=== PATIENT | female | born 1930 | race Two or more races ===

== ENCOUNTER → 2016-10-15 | Outpatient (CLI) | payer OTHER ==
--- NOTE | 2016-10-15 10:54 | MA ---
Screening Digital Mammogram With iCAD Indication: Routine screening. Technique: Standard cephalocaudal and mediolateral oblique projections are obtained. This examinati on is processed by the iCAD computer-aided detection system. Comparison: August 2015, July 2014, July 2013, and July 2011 Breast density: Type B. Findings: CAD was reviewed. No suspicious microcalcifications, mass, or architectural distortion. Impression: Negative mammogram BI-RADS: 1 - Negative Recommendation: Routine screening is recommended in one year. [facility] will send a result letter to the patient. Negative mammography should not preclude additional workup of a clinically suspicious finding. The patient's information is entered into a reminder system with a target due date for her next mammo gram.
== END ==
LOC: FIMAGING 09:01
DX: Z12.31 Encounter for screening mammogram for malignant neoplasm of breast (principal)
CPT/HCPCS: G0202

== ENCOUNTER → 2017-01-31 | Outpatient (CLI) | payer OTHER | LOC: BHFA 10:00 | PROVIDERS: ATTEND Internal Medicine Cardiovascular Disease | DX: I34.0 Nonrheumatic mitral (valve) insufficiency (principal); I10 Essential (primary) hypertension; I25.10 Atherosclerotic heart disease of native coronary artery without angina pectoris ==

== ENCOUNTER → 2017-08-03 | Outpatient (CLI) | payer OTHER | LOC: FIMAGING 10:48 | PROVIDERS: ATTEND Physician Assistant | DX: S76.312A Strain of muscle, fascia and tendon of the posterior muscle group at thigh level, left thigh, initial encounter (principal); M16.12 Unilateral primary osteoarthritis, left hip; M76.02 Gluteal tendinitis, left hip ==

== ENCOUNTER → 2017-10-24 | Outpatient (CLI) | payer OTHER | LOC: FIMAGING 08:05 | PROVIDERS: ATTEND Family Medicine | DX: Z12.31 Encounter for screening mammogram for malignant neoplasm of breast (principal) ==

== ENCOUNTER 2017-11-02 17:25 | Emergency (ER) | payer OTHER ==
[2017-11-02 17:32] VITALS: BP 214/82; PULSE 92; RESP 18; TEMP 98.1; O2SAT 90
[2017-11-02] MEDS ORDERED: LIDOCAINE 4%/MENTHOL 1% PATCH TD ONE (17:54)
[2017-11-02] MEDS ORDERED: ACETAMINOPHEN 325 MG TAB PO ONE (17:55)
--- NOTE | 2017-11-02 17:55 | EDPHY ---
H & P Time Seen by Provider: 11/02/17 17:39 HPI/ROS: CHIEF COMPLAINT: Bilateral neck pain HISTORY OF PRESENT ILLNESS: Symptoms started this week on Saturday when she bent down to pick pulling machine tender the piece of carrot that was on the floor. She had pain which is worse in her right side of her neck than the left which is gradually increased over the last 4 days. It extends into her shoulders and is worse with turning her head or any movement of her head or neck. Not associated with weakness or numbness in extremities, visual symptoms, headache, fever or chills , dizziness or vertigo or trouble with balance or speech. Symptoms moderate not really that much better with Tylenol or heating pad. No injury or fall. No sore throat. REVIEW OF SYSTEMS: Eye: no change in vision ENT: no sore throat Cardiac: no chest pain or syncope Pulmonary: no cough or SOB Abdomen: no vomiting, diarrhea, abdominal pain Musculoskeletal: HPI Skin: no rash Neuro: no headache Constitutional: no fever : no urinary symptoms A comprehensive 10 point review of systems is otherwise negative aside from elements mentioned in the history of present illness. PAST MEDICAL HISTORY: Includes hypertension, cholesterol, pleurisy, myocardial infarction, appendectomy and cholecystectomy, asthma with home oxygen Mainly at night. Social history: Here with her children. General Appearance: Alert and conversant, cooperative. Eyes: No scleral icterus. Extraocular motion intact and pupils reactive. ENT, Mouth: Normal mucous membranes. No trismus. No stridor or drooling and normal voice. Respiratory: Normal respiratory effort, breath sounds equal, lungs are clear to auscultation. Cardiovascular: Regular rate and rhythm. Gastrointestinal: Abdomen is soft and non tender. Neurological: Alert, face symmetric, normal motor and sensory in extremities. Normal [id number] bilaterally. No pronator drift. Can lift each limb off the bed independently. Speech is fluent. Extraocular motions intact. Good general manager farm strength bilaterally. Skin: Warm and dry, no rashes. No redness or other skin discoloration on the neck. Musculoskeletal: Patient has tenderness greater on the right trapezius than the left. Pushing reproduces her symptoms and really makes her jump. She has a lot of paraspinal neck muscle tenderness but no midline cervical thoracic or lumbar spine tenderness. No neck swelling. Psychiatric: Not agitated. 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 Lidocaine patch and a small amount of oxycodone, cold pack, follow up with her primary care doctor this week. Hypertension noted, likely due to pain. Oxygen saturation noted, likely baseline. Smoking Status: Never smoked Constitutional: Initial Vital Signs Temperature (C) 36.7 C 11/02/17 17:26 Heart Rate 92 11/02/17 17:26 Respiratory Rate 18 11/02/17 17:26 Blood Pressure 214/82 H 11/02/17 17:26 O2 Sat (%) 90 L 11/02/17 17:26 O2 Delivery Mode Room Air Allergies/Adverse Reactions: Sulfa (Sulfonamide Antibiotics) [Sulfa(Sulfonamide Antibiotics)] Allergy ( Unknown, Verified 11/02/17 17:25) Home Medications: Medication Instructions Recorded Home O2 05/21/16 Aspirin EC [Aspirin EC 81 mg (*)] 81 mg PO DAILY 11/02/17 Atorvastatin Calcium [Lipitor 20 20 mg PO DAILY 11/02/17 mg (*)] Ezetimibe [Zetia 10 MG (*)] 10 mg PO 11/02/17 Furosemide [Lasix 20 MG (*)] 20 mg PO 11/02/17 Ipratropium [Atrovent Neb (*)] 0.5 mg IH 11/02/17 Lidocaine [Lidoderm] 1 each TP DAILY #5 adh..patch 11/02/17 amLODIPine BESYLATE [Norvasc 5 mg 5 mg PO DAILY 11/02/17 (*)] oxyCODONE HCL [Oxycodone HCl] 5 mg PO Q6 PRN #11 tablet 11/02/17 MDM/Departure - MDM Medications Given: Discontinued Medications Acetaminophen (Tylenol) 650 mg PO EDNOW ONE Stop: 11/02/17 17:56 Last Admin: 11/02/17 18:04 Dose: 650 mg Miscellaneous Information (Patch Removal) 1 ea TD DAILY21 ALBAN Stop: 05/01/18 20:59 Last Admin: 11/02/17 18:05 Dose: Not Given Miscellaneous Medication (Icy Hot Lidocaine/Menthol 4%/1% Patch) 1 patch TD EDNOW ONE Stop: 11/02/17 17:55 Last Admin: 11/02/17 18:03 Dose: 1 patch - Depart Disposition: Home, Routine, Self-Care Clinical Impression: Neck muscle spasm Condition: Good Instructions: Lidocaine (On the skin), Oxycodone, Rapid Release (By mouth), Spasmodic Torticollis (ED), Muscle Spasm (ED) Additional Instructions: Ice pack for 20 min at a time to sore areas as needed 3-4 times a day. Please return for worsening or severe pain, fever, any trouble with speech or balance or vision or dizziness. Please see your doctor in the next 2-3 days for recheck. you can take Tylenol 650 mg by mouth every 6 hr as needed for pain over the next 3 days. Prescriptions: Lidocaine [Lidoderm] 1 each TP DAILY #5 adh..patch oxyCODONE HCL [Oxycodone HCl] 5 mg PO Q6 PRN #11 tablet PRN Reason: neckpain Referrals: ANAND MORRISSEY [Primary Care Provider] - 2-3 days, call for appt.
[2017-11-02] MEDS ORDERED: PATCH REMOVAL 1 EA PATCH TD SCH (21:00)
== END 2017-11-02 18:07 | disposition home or self-care (01) ==
DX: M62.838 Other muscle spasm (principal); I10 Essential (primary) hypertension; J45.909 Unspecified asthma, uncomplicated; I25.2 Old myocardial infarction; Z79.82 Long term (current) use of aspirin

== ENCOUNTER → 2018-03-05 | Outpatient (CLI) | payer OTHER | DX: I25.10 Atherosclerotic heart disease of native coronary artery without angina pectoris (principal); I77.9 Disorder of arteries and arterioles, unspecified; I10 Essential (primary) hypertension; I34.0 Nonrheumatic mitral (valve) insufficiency; E78.00 Pure hypercholesterolemia, unspecified; Z79.899 Other long term (current) drug therapy ==

== ENCOUNTER → 2019-01-08 | Outpatient (CLI) | payer OTHER | LOC: FIMAGING 11:06 | PROVIDERS: ATTEND Family Medicine | DX: Z12.31 Encounter for screening mammogram for malignant neoplasm of breast (principal) ==

== ENCOUNTER → 2019-02-03 | Outpatient (CLI) | payer OTHER | LOC: BHFA 10:45 | PROVIDERS: ATTEND Internal Medicine Cardiovascular Disease | DX: I25.10 Atherosclerotic heart disease of native coronary artery without angina pectoris (principal) ==

== ENCOUNTER 2019-02-06 16:27 | Inpatient (IN) | payer OTHER ==
--- NOTE | 2019-02-06 16:30 | EDPHY ---
H & P Time Seen by Provider: 02/06/19 16:30 - Personal History Tetanus Vaccine Date: 2009 - Medical/Surgical History Hx Asthma: Yes Hx Chronic Respiratory Disease: Yes Hx Diabetes: No Hx Cardiac Disease: Yes Hx Renal Disease: No Hx Cirrhosis: No Hx Alcoholism: No Hx HIV/AIDS: No Hx Splenectomy or Spleen Trauma: No Other PMH: HTN, high cholesterol, pleurisy, heart murmur, OH, appendectomy, hernan. home O2 3lnc at night, asthma. osteoperosis - Social History Smoking Status: Never smoked Constitutional: Initial Vital Signs Temperature (C) 36.8 C 02/06/19 16:32 Heart Rate 73 02/06/19 16:32 Respiratory Rate 16 02/06/19 16:32 Blood Pressure 175/73 H 02/06/19 16:32 O2 Sat (%) 94 02/06/19 16:32 O2 Delivery Mode [Procedural Non-Rebreather Mask 4th] O2 Delivery Mode [Procedural Non-Rebreather Mask 3rd] O2 Delivery Mode [Procedural Non-Rebreather Mask 2nd] O2 Delivery Mode [Procedural Nasal Cannula,Non-Rebreather Mask 1st] O2 Delivery Mode [.Immediate Nasal Cannula Pre-Procedure] O2 Delivery Mode Nasal Cannula O2 (L/minute) [Procedural 4th] 15 O2 (L/minute) [Procedural 3rd] 15 O2 (L/minute) [Procedural 2nd] 15 O2 (L/minute) [Procedural 1st] 15 O2 (L/minute) [.Immediate Pre- 3 Procedure] O2 (L/minute) 3 Allergies/Adverse Reactions: Sulfa (Sulfonamide Antibiotics) [Sulfa(Sulfonamide Antibiotics)] Allergy ( Unknown, Verified 11/02/17 17:25) Home Medications: Medication Instructions Recorded Home O2 05/21/16 Aspirin EC [Aspirin EC 81 mg (*)] 81 mg PO DAILY 11/02/17 Atorvastatin Calcium [Lipitor 20 20 mg PO DAILY 11/02/17 mg (*)] Ezetimibe [Zetia 10 MG (*)] 10 mg PO 11/02/17 Furosemide [Lasix 20 MG (*)] 20 mg PO 11/02/17 Ipratropium [Atrovent Neb (*)] 0.5 mg IH 11/02/17 Lidocaine [Lidoderm] 1 each TP DAILY #5 adh..patch 11/02/17 amLODIPine BESYLATE [Norvasc 5 mg 5 mg PO DAILY 11/02/17 (*)] oxyCODONE HCL [Oxycodone HCl] 5 mg PO Q6 PRN #11 tablet 11/02/17 Medical Decision Making - Diagnostics Imaging Results: Imaging Impressions Shoulder X-Ray 02/06/19 16:36 Impression: Anterior dislocation at the glenohumeral joint left shoulder. Possible loose body or fracture fragment near the glenoid. Other chronic findings as above. Imaging: I viewed and interpreted images myself ED Course/Re-evaluation: CHIEF COMPLAINT: Left shoulder injury HISTORY OF PRESENT ILLNESS: The patient is an 88 y/o female with a history of hypertension, OH, and asthma arriving via EMS for a left shoulder injury. Per EMS the patient lives independently and tripped over the rug in her kitchen. She fell onto her left side and subsequently developed left shoulder pain. Due to this pain she has been unable to move her arm. She denies loss of consciousness. While en route she received 100mcg IV Fentanyl and 4mg IV Zofran. No fever, headache, body aches, lightheadedness, chest pain, heart palpitations, shortness of breath, cough, abdominal pain, urinary or bowel complaints, numbness, paresthesias. REVIEW OF SYSTEMS: A comprehensive 10 system review of systems is otherwise negative aside from elements mentioned in the history of present illness and medical decision making. PHYSICAL EXAM: HR, BP, O2 Sat, RR. Temp noted General Appearance: Alert, well hydrated, appropriate, and non-toxic appearing. Head: Atraumatic without scalp tenderness or obvious injury Eyes: Pupils equal, round, reactive to light and accommodation, EOMI, no trauma , no injection. Ears: Clear bilaterally, no perforation, normal landmarks Nose: Atraumatic, no rhinorrhea, clear. Throat: There is no erythema or exudates, no lesions, normal tonsils, mucus membranes moist. Neck: Supple, 2+ carotid upstroke, nontender, no lymphadenopathy. Respiratory: No retractions, no distress, no wheezes, and no accessory muscle use. Lungs are clear to auscultation bilaterally. Cardiovascular: Regular rate and rhythm, no murmurs, rubs, or gallops. Bilateral carotid, radial, dorsalis pedis, and posterior tibial pulses intact. Good capillary refill all extremities. Gastrointestinal: Abdomen is soft, nontender, non-distended, no masses, no rebound, no guarding, no peritoneal signs. Musculoskeletal: Deformity to left shoulder with tenderness and limited ROM. Otherwise normal active ROM of all extremities, atraumatic. Neurological: Alert, appropriate, and interactive. The patient has normal DTRs and non-focal cranial nerves, motor, sensory, and cerebellar exam. Skin: No rashes, good turgor, no nodules on palpation. Past medical history: Hypertension, high cholesterol, pleurisy, heart murmur, OH , home O2 3lnc at night, asthma, osteoporosis Past surgical history: Appendectomy, cholecystectomy Family history: Denies Social history: Single, lives independently in [place], retired DIAGNOSTICS/PROCEDURES/CRITICAL CARE TIME: Left shoulder x-ray: Anterior dislocation at the glenohumeral joint left shoulder. Possible loose body or fracture fragment near the glenoid. Procedure: Reduction of dislocated shoulder Time-out completed immediately before the procedure. O2 administered. Placed on pulse oximeter and [id number]. Neurovascular exam intact pre-procedure. Given 10mL 1% Bupivacaine with epinephrine into the glenohumeral joint and then 60mg IV Ketamine. The left shoulder was reduced using traction-countertraction. Reassessed post-procedure. Neurovascular status intact- normal median, radial, ulnar and axillary nerve motor and sensory exam. Exam indicated reduction. Confirmed reduction on X-ray. Arm sling applied. The procedure was performed by myself, Dr. Zaragoza Indication: Left shoulder dislocation reduction The patient is an appropriate candidate to tolerate procedural sedation. The patient's vitals signs and mental status are appropriate. The risks, benefits and alternatives of the sedation were discussed with the patient. The patient is ASA classification 1. The patient's Mallampati airway score was 1 and the patient did meet the 3-3-2 airway measurements. A time out was completed. The patient was sedated with 60mg IV Ketamine. The patient was monitored with continuous pulse oximetry, monitor worker and end tidal CO2. There were no complications and no significant hypoxemia. I performed both the sedation and the procedure. The total time I spent at the bedside during the procedural sedation was 20 minutes. The patient was examined after the procedural sedation and has returned to their pre-sedation baseline with normal vital signs and a normal examination. Post reduction left shoulder x-ray: Reduced left shoulder dislocation. DIFFERENTIAL DIAGNOSIS: The differential diagnosis for the patient's shoulder injury included but was not limited to fracture, ligamentous injury, contusion, muscular strain. MEDICAL DECISION MAKING: The patient is an 88 y/o female with a history of hypertension, OH, and asthma arriving via EMS for a left shoulder injury. After a mechanical fall today the patient injured her left shoulder. While en route she received 100mcg IV Fentanyl and 4mg IV Zofran. On exam there is a deformity to the left shoulder with tenderness and limited ROM. Left shoulder x-ray ordered. 1712: Patient has been moved to Trauma Room 1 for a shoulder reduction. She just received 100mcg IV Fentanyl and an additional 4mg IV Zofran. She is actively vomiting. I will not be able to consciously sedate her. I will locally anesthetize the patient's shoulder to perform the reduction. 1725: I am unable to reduce the patient's fracture. We will need to consciously sedate her with Ketamine, which she is comfortable with. 1736: Reassessed patient to reduce the patient's shoulder dislocation with conscious sedation. Patient received 60mg IV Ketamine as she was not able to relax and her muscles continued to spasm. I was able to successfully reduce the dislocation. Patient will be placed in a sling. 1800: Patient is still vomiting. She will need to be admitted for pain control and further evaluation. 1827: I consulted with the hospitalist service, Dr. Conteh accepts admission of this patient. 1830: Reassessed patient and discussed plan for admission, which she is comfortable with. - Data Points Medications Given: Discontinued Medications Fentanyl (Sublimaze) 100 mcg IVP EDNOW ONE Stop: 02/06/19 17:00 Last Admin: 02/06/19 17:05 Dose: 100 mcg Ketamine HCl 60 mg/ Syringe 1.2 mls @ 72 mls/hr IVP ONCE ONE Stop: 02/06/19 17:26 Last Admin: 02/06/19 18:00 Dose: Not Given Ketamine HCl (Ketamine) 60 mg IV EDNOW ONE Stop: 02/06/19 17:31 Last Admin: 02/06/19 17:30 Dose: 60 mg Ondansetron HCl (Zofran) 4 mg IVP EDNOW ONE Stop: 02/06/19 17:00 Last Admin: 02/06/19 17:05 Dose: 4 mg Ondansetron HCl (Zofran) 4 mg IVP EDNOW ONE Stop: 02/06/19 17:18 Last Admin: 02/06/19 17:20 Dose: 4 mg Departure - Departure Disposition: [facility] Inpatient Acute Clinical Impression: Dislocation of left shoulder joint Qualifiers: Encounter type: initial encounter Qualified Code(s): S43.005A - Unspecified dislocation of left shoulder joint, initial encounter Condition: Fair Referrals: Patient,NotPresent [Unknown] - As per Instructions Report Scribed for: Pauol Zaragoza Report Scribed by: Joan Campa Date of Report: 02/06/19 Time of Report: 16:31
[2019-02-06] MEDS ORDERED: fentaNYL 100 MCG/2 ML INJ IVP ONE (16:59)
[2019-02-06] MEDS ORDERED: ONDANSETRON 4 MG/2 ML VIAL IVP ONE ×2 (16:59→17:17)
[2019-02-06] MEDS ORDERED: ONDANSETRON 4 MG/2 ML VIAL ONE (17:13)
[2019-02-06] MEDS ORDERED: KETAMINE 200 MG/20 ML VIAL ONE (17:25)
[2019-02-06] MEDS ORDERED: KETAMINE IVP ONE (17:25)
[2019-02-06] MEDS ORDERED: KETAMINE 500 MG/10 ML VIAL IV ONE (17:30)
[2019-02-06] MEDS ORDERED: oxyCODONE IR 5 MG TAB PO PRN (19:10)
[2019-02-06] MEDS ORDERED: ONDANSETRON 4 MG/2 ML VIAL IVP PRN (19:10)
[2019-02-06] MEDS ORDERED: ACETAMINOPHEN 325 MG TAB PO PRN (19:10)
[2019-02-06] MEDS ORDERED: ONDANSETRON DISINTEGRATING 4 MG TAB PO PRN (19:10)
[2019-02-06] MEDS ORDERED: HYDROmorphONE/DILAUDID 1 MG/ML INJ IVP PRN (19:21)
--- NOTE | 2019-02-06 19:30 | PDGENHP ---
History and Physical - Chief Complaint fall, shoulder pain - History of Present Illness 88yo F with history of asthma, chronic nocturnal O2 dependence, CAD, HTN presents after a mechanical fall at home. She tripped on a rug while going into her kitchen. She fell on her left shoulder and immediately had pain. She also hit her left knee and lightly bumped her head. She is on aspirin but no anticoagulants. EMS was called. She did vomit in the ambulance which she attributes to the pain she was experiencing. An x-ray showed a anteriorly dislocated left shoulder and loose body near the glenoid. The shoulder was successfully reduced by Dr Zaragoza after receiving 60mg IV ketamine. She was placed in a sling. She again vomited after the reduction and continues to have mild pain. Given that the patient lives alone and is still symptomatic, it was felt unsafe to discharge this elderly woman with limited mobility of her left arm. Case discussed with ED physician Paulo Zaragoza. History Information - Allergies/Home Medication List Allergies/Adverse Reactions: Sulfa (Sulfonamide Antibiotics) [Sulfa(Sulfonamide Antibiotics)] Allergy ( Intermediate, Verified 02/06/19 19:38) Swelling/neck,face,throat Home Medications: Aspirin EC [Aspirin EC 81 mg (*)] 81 mg PO DAILY 02/06/19 [Last Taken 02/06/19] Atorvastatin Calcium [Lipitor 20 mg (*)] 20 mg PO DAILY 02/06/19 [Last Taken ] Carvedilol [Coreg (*)] 25 mg PO BIDMEAL 02/06/19 [Last Taken 02/06/19] Cholecalciferol Vit D3 [Vitamin D3 (*)] 1,000 units PO DAILY 02/06/19 [Last Taken 02/06/19] Ezetimibe [Zetia 10 MG (*)] 10 mg PO DAILY 02/06/19 [Last Taken 02/06/19] Furosemide [Lasix 20 MG (*)] 20 mg PO DAILY@0600 02/06/19 [Last Taken 02/06/19] I have personally reviewed and updated: family history, medical history, social history, surgical history - Past Medical History Additional medical history: CAD, carotid artery disease, HLD, HTN, mitral regurgitation, asthma, chronic nocturnal O2 dependence, diastolic CHF - Surgical History Additional surgical history: appy, hernan, tonsillectomy - Family History Positive for: non-pertinent - Social History Smoking Status: Never smoked Alcohol Use: None Drug Use: None Additional social history: Lives alone in [facility]. Has son who also lives in [place]. Review of Systems Review of Systems: ROS: 10pt was reviewed & negative except for what was stated in HPI & below Physical Exam Physical Exam: Temp Pulse Resp BP Pulse Ox 36.9 C 71 16 144/56 H 98 02/06/19 18:37 02/06/19 18:37 02/06/19 18:37 02/06/19 18:37 02/06/19 18:37 O2 (L/minute) 3 Constitutional: no apparent distress, appears nourished, not in pain Eyes: PERRL, anicteric sclera, EOMI Ears, Nose, Mouth, Throat: moist mucous membranes, hearing normal, ears appear normal, no oral mucosal ulcers Cardiovascular: regular rate and rhythym, no murmur, rub, or gallop, No edema Respiratory: no respiratory distress, no rales or rhonchi, clear to auscultation Gastrointestinal: normoactive bowel sounds, soft, non-tender abdomen, no palpable masses Genitourinary: no bladder fullness, no bladder tenderness Skin: warm, normal color, no rashes or abrasions, no fluctuance, no induration, No mottled Musculoskeletal: other (left arm in sling) Neurologic: AAOx3 Psychiatric: interacting appropriately Lab Data & Imaging Review Interpretation: Left shoulder x-ray: see HPI Assessment & Plan Assessment: 88yo F with history of asthma, chronic nocturnal O2 dependence, CAD, HTN presents after a mechanical fall at home found to have dislocated shoulder. Plan: 1. Acute anterior dislocation of left shoulder: s/p reduction in ED. - Sling, pain control 2. Mechanical fall: No significant headstrike or LOC. Non-focal neurologic exam. On aspirin but no anticoagulants. - No indication for head CT currently\ - PT/OT 3. Nausea: Suspect related to pain from #1. - Anti-emetics PRN 4. CAD: No anginal symptoms. Continue aspirin, atorva, carvedilol. 5. Diastolic CHF: Appears euvolemic. Continue low dose lasix. 6. Chronic nocturnal O2 dependence 7. Asthma: Not currently exacerbated. VTE ppx: SCDs. recommend pharmacologic if stays >24 hours Code: full Dispo: admit under observation
[2019-02-06] MEDS: DIAZEPAM 5 MG TAB PO PRN (22:20)
[2019-02-06] MEDS: IBUPROFEN 600 MG TAB PO PRN (22:20)
[2019-02-07] MEDS: FUROSEMIDE 20 MG TAB PO SCH (05:38)
[2019-02-07] MEDS: IBUPROFEN 600 MG TAB PO PRN ×2 (07:59→18:02)
[2019-02-07] MEDS: ATORVASTATIN CALCIUM 20 MG TAB PO SCH (07:59)
[2019-02-07] MEDS: CARVEDILOL 25 MG TAB PO SCH ×2 (08:00→18:02)
[2019-02-07] MEDS: EZETIMIBE 10 MG TAB PO SCH (08:00)
[2019-02-07] MEDS: CHOLECALCIFEROL VIT D3 1,000 UNITS TAB PO SCH (08:00)
[2019-02-07] MEDS: ASPIRIN EC 81 MG TAB PO SCH (08:00)
--- NOTE | 2019-02-07 11:46 | HOSPPROG ---
Hospitalist Progress Note Assessment/Plan: 88yo F with history of asthma, chronic nocturnal O2 dependence, CAD, HTN presents after a mechanical fall at home found to have dislocated shoulder. First encounter, chart reviewed. D/W CM. 1. Acute anterior dislocation of left shoulder: - s/p reduction in ED. - Sling, pain control -very painful with limited ROM 2. Mechanical fall: - No significant headstrike or LOC. Non-focal neurologic exam. On aspirin but no anticoagulants. - No indication for head CT currently - PT/OT 3. Nausea: - Suspect related to pain from #1. - Anti-emetics PRN - resolved 4. CAD: -No anginal symptoms. Continue aspirin, atorva, carvedilol. 5. Diastolic CHF: -Appears euvolemic. Continue low dose lasix. 6. Chronic nocturnal O2 dependence 7. Asthma: -Not currently exacerbated. VTE ppx: SCDs. recommend pharmacologic if stays >24 hours Code: full Dispo: change to inpt status pain not controlled requires further supportive care Subjective: Still having significant pain. No other issues. Unable to move. Objective: Vital Signs Temp Pulse Resp BP Pulse Ox 36.9 C 64 17 120/73 93 02/07/19 11:37 02/07/19 11:37 02/07/19 11:37 02/07/19 11:37 02/07/19 11:37 02/06/19 02/07/19 02/08/19 05:59 05:59 05:59 Intake Total 200 Output Total 1100 300 Balance -1100 -100 - Physical Exam Constitutional: appears nourished, chronically ill appearing, uncomfortable Eyes: PERRL, anicteric sclera, EOMI Ears, Nose, Mouth, Throat: moist mucous membranes, hearing normal, ears appear normal Cardiovascular: regular rate and rhythym, No JVD, No edema Respiratory: no respiratory distress, no rales or rhonchi, reduced air movement Gastrointestinal: normoactive bowel sounds, No tenderness, No ascites Skin: warm, normal color, No mottled Musculoskeletal: joint tenderness, pain with ROM, muscular tenderness, generalized weakness Neurologic: AAOx3 Psychiatric: interacting appropriately, not anxious, not encephalopathic ICD10 Worksheet Patient Problems: Problems Problem Status Onset Pneumonia Acute Dislocation of left shoulder joint Acute
--- NOTE | 2019-02-07 12:13 | ASMTCMCOM ---
CM Note CM Note Notes: Pt had fall at home and dislocated shoulder. Pt resdes alone independently, has a dghtr Raghavendra ([phone]) and Son Sai ([phone]) local. OT rec SNF, PT eval is pending and may not be until tomorrow. Pt agrees to SNF and requests referral to [facility]. Referal sent in [employer] and pt non-triggering PASRR completed. Pt tyra Gibbs updated. D/c plan of care: [facility] Saturday Date Signed: 02/07/2019 12:13 PM Electronically Signed By:SHANICE Ball
[2019-02-07] MEDS: CALCIUM CARBONATE 500 MG CHEWABLE TAB PO PRN ×2 (15:12→22:26)
--- NOTE | 2019-02-07 18:02 | PDMN ---
Medical Necessity Medical necessity: [facility] Musculoskeletal Disease: 88 yo w/ acute anterior dislocation of L shoulder s/p fall and reduction in ED. Initially OBS but pt requires additional MN for pain control with limited ROM, PT/OT ordered and involved. Pt still with sig pain after obs care and unable to move, not meeting d/c criteria. Hx asthma, chronic nocturnal O2 dependence, CAD, HTN. Change to IP status 02/07/19@1145 per CLOTH BALER order.
[2019-02-07] MEDS: DIAZEPAM 5 MG TAB PO PRN (20:36)
[2019-02-08] MEDS: IBUPROFEN 600 MG TAB PO PRN ×3 (03:58→21:42)
[2019-02-08] MEDS: FUROSEMIDE 20 MG TAB PO SCH (06:20)
[2019-02-08] MEDS: ASPIRIN EC 81 MG TAB PO SCH (08:27)
[2019-02-08] MEDS: ATORVASTATIN CALCIUM 20 MG TAB PO SCH (08:27)
[2019-02-08] MEDS: CHOLECALCIFEROL VIT D3 1,000 UNITS TAB PO SCH (08:27)
[2019-02-08] MEDS: CARVEDILOL 25 MG TAB PO SCH ×2 (08:27→18:31)
[2019-02-08] MEDS: EZETIMIBE 10 MG TAB PO SCH (08:27)
[2019-02-08] MEDS: IPRATROPIUM HFA INHALER IH SCH ×3 (11:22→20:41)
--- NOTE | 2019-02-08 12:32 | HOSPPROG ---
Hospitalist Progress Note Assessment/Plan: 88yo F with history of asthma, chronic nocturnal O2 dependence, CAD, HTN presents after a mechanical fall at home found to have dislocated shoulder. 1. Acute anterior dislocation of left shoulder: - s/p reduction in ED. - Sling, pain control -very painful with limited ROM 2. Mechanical fall: - No significant headstrike or LOC. Non-focal neurologic exam. On aspirin but no anticoagulants. - No indication for head CT currently - PT/OT 3. Nausea: - Suspect related to pain from #1. - Anti-emetics PRN - resolved 4. CAD: -No anginal symptoms. Continue aspirin, atorva, carvedilol. 5. Diastolic CHF: -Appears euvolemic. Continue low dose lasix. 6. Chronic nocturnal O2 dependence 7. Asthma: -Not currently exacerbated. VTE ppx: SCDs. recommend pharmacologic if stays >24 hours Code: full Dispo: change to inpt status pain not controlled requires further supportive care needs SNF Subjective: Up in the chair. Still having some pain. Objective: Vital Signs Temp Pulse Resp BP Pulse Ox 36.6 C 70 16 126/54 H 91 L 02/08/19 11:14 02/08/19 11:14 02/08/19 11:14 02/08/19 11:14 02/08/19 11:14 02/07/19 02/08/19 02/09/19 05:59 05:59 05:59 Intake Total 1000 800 Output Total 900 550 Balance 100 250 - Physical Exam Constitutional: chronically ill appearing, uncomfortable Eyes: PERRL, anicteric sclera Ears, Nose, Mouth, Throat: moist mucous membranes, hearing normal Cardiovascular: No JVD, No edema Respiratory: no respiratory distress, reduced air movement Gastrointestinal: No tenderness, No ascites Skin: warm, normal color Musculoskeletal: joint tenderness, pain with ROM, generalized weakness Neurologic: AAOx3 Psychiatric: interacting appropriately, not anxious, not encephalopathic ICD10 Worksheet Patient Problems: Problems Problem Status Onset Pneumonia Acute Dislocation of left shoulder joint Acute
[2019-02-09] MEDS: FUROSEMIDE 20 MG TAB PO SCH (05:39)
[2019-02-09] MEDS: IPRATROPIUM HFA INHALER IH SCH ×4 (05:57→20:13)
[2019-02-09] MEDS: IBUPROFEN 600 MG TAB PO PRN ×2 (06:33→20:07)
[2019-02-09] MEDS: CARVEDILOL 25 MG TAB PO SCH ×2 (08:15→18:32)
[2019-02-09] MEDS: CHOLECALCIFEROL VIT D3 1,000 UNITS TAB PO SCH (08:15)
[2019-02-09] MEDS: ASPIRIN EC 81 MG TAB PO SCH (08:15)
[2019-02-09] MEDS: ATORVASTATIN CALCIUM 20 MG TAB PO SCH (08:15)
[2019-02-09] MEDS: EZETIMIBE 10 MG TAB PO SCH (08:16)
[2019-02-09] MEDS: ENOXAPARIN 40 MG/0.4 ML SYR SC SCH (08:19)
[2019-02-09] MEDS: amLODIPine BESYLATE 5 MG TAB PO SCH (08:38)
[2019-02-09] MEDS ORDERED: MAGNESIUM HYDROXIDE 30 ML UDCUP PO PRN (11:53)
[2019-02-09] MEDS ORDERED: LACTULOSE 20 GM/30 ML UDCUP PO PRN (11:53)
[2019-02-09] MEDS ORDERED: BISACODYL 10 MG SUPP PR PRN (11:53)
--- NOTE | 2019-02-09 11:53 | HOSPPROG ---
Hospitalist Progress Note Assessment/Plan: 88yo F with history of asthma, chronic nocturnal O2 dependence, CAD, HTN presents after a mechanical fall at home found to have dislocated shoulder. * Acute anterior dislocation of left shoulder - s/p reduction in ED -having some intermittent numbness to thumb, index and middle finger -will ask orthopedics to see * Mechanical fall -PT and OT seeing *Nausea -none further *constipation -bowel protocl *CAD -stable * Diastolic CHF -Lasix * Chronic nocturnal O2 dependence * Asthma without exacerbation *DVT prophylaxis: LMWH added *plan: orthopedics to see, ordered imaging to be sure her shoulder has not re- dislocated, added bowel protocol. Subjective: Héctor says her left arm, shoulder is very painful. Had some numbness to her thumb, index and middle finger, now only in the thumb. Objective: Vital Signs Temp Pulse Resp BP Pulse Ox 36.5 C 75 16 97/68 L 93 02/09/19 07:16 02/09/19 08:15 02/09/19 07:16 02/09/19 08:38 02/09/19 07:16 Laboratory Results 02/09/19 11:19 02/08/19 02/09/19 02/10/19 05:59 05:59 05:59 Intake Total 1000 2250 Output Total 900 1150 Balance 100 1100 - Physical Exam Constitutional: appears nourished, uncomfortable Eyes: PERRL Ears, Nose, Mouth, Throat: hearing normal Cardiovascular: regular rate and rhythym Respiratory: no respiratory distress Skin: warm Musculoskeletal: generalized weakness Neurologic: AAOx3, sensation intact bilaterally Psychiatric: interacting appropriately, poor memory ICD10 Worksheet Patient Problems: Problems Problem Status Onset Dislocation of left shoulder joint Acute Pneumonia Acute
--- NOTE | 2019-02-09 12:44 | PDCONSULT ---
Audiovisual Tech Note: ORTHOPEDIC SURGERY CONSULT NOTE SUBJECTIVE Kalpana is an 88 YOF who sustained a fall to her left shoulder about 4 days ago. She presented to [facility] ER where x-rays confirmed an anterior dislocated left shoulder. It was properly reduced in the ER and she was admitted to the Hospitalist service. I was asked to consult on patient from hospitalist Homero. Patient states her pain is better controlled today. She has a good appetite. She states she has had some intermittent tingling in her index, and 3rd finger, which seemed to have resolved, or improving. OBJECTIVE. patient appears in good spirit, eating lunch well. Denies any current numbness or tingling of her fingers. Denies any SOB or CP. EXAM: Left Shoulder Tenderness to palpation over anterior and posterior shoulder. No tenderness over SC joint or AC joint. Full ROM of elbow and wrist. Distal Neurovasculature intact. Neg Tinels at the elbow.Shrugs her shoulders with pain and discomfort. No Bicept tenderness. ASSESSMENT: Left Shoulder Dislocation. Possible small Glenoid chip fracture. Possible Rotator Cuff strain/tear. PLAN: At this point in time, I do not feel there is any nuerovascular compromise. She will remain in shoulder sling at all times. She will will limit her shoulder ROM and weightbearing as tolerated. She may continue elbow and wrist ROM and limit her LUE weightbearing to cell phone, pen, dinner fork type weight only. It appears she will be discharged to a SNF soon. It would be in patients best interest to followup with an orthopedist in the next 2-3 weeks for re-evaluation. We appreciate the consult. From an Orthopedic Standpoint, there will be no further inpatient treatment needed, and we will sign off on patient. If any further questions or concerns arrise, please dont hesitate to reach out. Case was discussed with Dr. Lewis, Orthopedic Surgeon automotive sales professional today. Robert Bailey PA-C for Dr. Lewis
[2019-02-09] MEDS: SENNOSIDES/DOCUSATE SODIUM TAB PO SCH ×2 (14:47→20:07)
[2019-02-09] MEDS: POLYETHYLENE GLYCOL 3350 17 GM PKT PO SCH (14:48)
[2019-02-09] MEDS: CALCIUM CARBONATE 500 MG CHEWABLE TAB PO PRN (20:06)
[2019-02-09] MEDS ORDERED: SENNOSIDES/DOCUSATE SODIUM TAB PO SCH (21:00)
[2019-02-10] MEDS: IPRATROPIUM HFA INHALER IH SCH ×2 (05:15→11:36)
[2019-02-10] MEDS: FUROSEMIDE 20 MG TAB PO SCH (05:37)
[2019-02-10] MEDS: IBUPROFEN 600 MG TAB PO PRN (05:38)
[2019-02-10 07:43] VITALS: BP 152/77
--- NOTE | 2019-02-10 09:00 | HOSPPROG ---
Hospitalist Progress Note Assessment/Plan: 88yo F with history of asthma, chronic nocturnal O2 dependence, CAD, HTN presents after a mechanical fall at home found to have dislocated shoulder. * Acute anterior dislocation of left shoulder - s/p reduction in ED -appreciate orthopedics seeing her -has a glenoid chip that will likely be reabsorbed * Mechanical fall -PT and OT seeing *Nausea -none further *constipation -bowel protocol *CAD -stable * Diastolic CHF -Lasix * Chronic nocturnal O2 dependence * Asthma without exacerbation *DVT prophylaxis: LMWH added *plan: dc to SNF Subjective: Kalpana feels well today, no complaints. Objective: Vital Signs Temp Pulse Resp BP Pulse Ox 36.5 C 66 16 152/77 H 92 02/10/19 07:42 02/10/19 07:42 02/10/19 07:42 02/10/19 07:42 02/10/19 07:42 Laboratory Results 02/09/19 11:19 02/09/19 02/10/19 02/11/19 05:59 05:59 05:59 Intake Total 2250 1100 Output Total 1150 550 Balance 1100 550 - Physical Exam Constitutional: no apparent distress, appears nourished, uncomfortable Eyes: PERRL Ears, Nose, Mouth, Throat: hearing normal Cardiovascular: regular rate and rhythym Respiratory: no respiratory distress, reduced air movement (bibasilar) Skin: warm, other (left arm in sling, good cms) Musculoskeletal: generalized weakness Neurologic: AAOx3 Psychiatric: interacting appropriately ICD10 Worksheet Patient Problems: Problems Problem Status Onset Dislocation of left shoulder joint Acute Pneumonia Acute
[2019-02-10] MEDS: EZETIMIBE 10 MG TAB PO SCH (09:32)
[2019-02-10] MEDS: CHOLECALCIFEROL VIT D3 1,000 UNITS TAB PO SCH (09:32)
[2019-02-10] MEDS: amLODIPine BESYLATE 5 MG TAB PO SCH (09:32)
[2019-02-10] MEDS: SENNOSIDES/DOCUSATE SODIUM TAB PO SCH (09:32)
[2019-02-10] MEDS: ATORVASTATIN CALCIUM 20 MG TAB PO SCH (09:32)
[2019-02-10] MEDS: ASPIRIN EC 81 MG TAB PO SCH (09:32)
[2019-02-10] MEDS: ENOXAPARIN 40 MG/0.4 ML SYR SC SCH (09:32)
[2019-02-10] MEDS: CARVEDILOL 25 MG TAB PO SCH (09:32)
[2019-02-10] MEDS: POLYETHYLENE GLYCOL 3350 17 GM PKT PO SCH (09:33)
--- NOTE | 2019-02-10 10:00 | PDIAF ---
- Diagnosis Diagnosis: dislocated left shoulder s/p reduction Code Status: Full Code - Medication Management Discharge Medications: electronically signed and located in the Home Medication List. - Orders Services needed: Physical Therapy, Occupational Therapy Isolation Type: None Oxygen: 1 liter Diet Recommendation: no restrictions on diet Diet Texture: Regular Texture Diet Additional Instructions: Patient to remain in shoulder sling at all times. She will limit shoulder range of motion and weightbearing as tolerated. She may continue elbow and wrist range of motion, and limit her left upper extremity weightbearing to cell phone , pen, dinner fork type weight only. follow up w Dr Lewis for follow up care in regards to your shoulder in 4 weeks continue Lovenox until more mobile - Follow Up Care Current Providers and Referrals: Patient,NotPresent [Unknown] - As per Instructions Branden Lewis MD [Medical Doctor] - (follow up in the next 2-3 weeks for re- evaluation)
--- NOTE | 2019-02-10 10:14 | ASMTLACE ---
JOLANTAE Length of stay for Answers: 3 days current admission Acuity / Level of Answers: Yes Care: Did the patient have an inpatient admission? Comorbidities - select Answers: Coronary Artery Disease all that apply Other Notes: HTN # of Emergency department Answers: 1-2 visits in the last 6 months Score: 10 Date Signed: 02/10/2019 10:13 AM Electronically Signed By:Flower Alvarado
--- NOTE | 2019-02-10 10:16 | ASMTDCNOTE ---
Case Management Discharge Discharge Order Complete? Answers: Yes Patient to Obtain Answers: Other Notes: via [facility] Medications Transportation Arranged Answers: Other Notes: [facility] wheelchair a n Faxed Final Orders Answers: Yes Agency/Facility Transfer Answers: Yes Report Printed & Faxed to Receiving Agency Family Notified Answers: Yes Notes: tyra Gibbs via phone Discharge Comments Notes: Pt is being D/Cd to [facility] today. Orders sent to [facility]; they will arrange transport. CM notified tyra Gibbs by phone [phone]. Date Signed: 02/10/2019 10:15 AM Electronically Signed By:Flower Rivera.JORGE ALBERTO
--- NOTE | 2019-02-10 10:24 | GDS ---
[f rep st] DISCHARGE SUMMARY DISCHARGE DIAGNOSES: 1. Acute anterior dislocation of left shoulder, status post reduction. 2. Mechanical fall. 3. Nausea. 4. Constipation. 5. Coronary artery disease. 6. Diastolic congestive heart failure. 7. Chronic nocturnal oxygen dependence. 8. Asthma without exacerbation. CONSULTATION: Robert Bailey, physician assistant family teacher with Orthopedics. Briefly, Kalpana Fisher is an 88-year-old female who presented after having a mechanical fall at [facility]. She tripped on a rug while going into her kitchen. She fell and landed on her left shoulder and had immediate pain. She hit her left knee and lightly bumped her head. She is on aspirin, but no ot her anticoagulants. She was seen and evaluated by Dr. Zaragoza, emergency room physician. The should er was successfully reduced by Dr. Zaragoza in the ER. A consultation was acquired by orthopedic surg jeana because she was having ongoing pain and numbness to her fingers. They noted that she did not hav e any neurovascular compromise. They are recommending that she follow up with an orthopedic surgeon in the next 2 to 3 weeks. She is feeling markedly better and will go to rehab for strengthening. HOSPITAL COURSE: 1. Acute anterior dislocation of left shoulder, status post reduction. She will need to follow up w [facility] in the next few weeks. 2. Mechanical fall, doing well. 3. Nausea, resolved. 4. Constipation, resolved. 5. Coronary artery disease, stable. 6. Diastolic congestive heart failure, appears euvolemic on Lasix. 7. Chronic nocturnal O2 dependence, stable. 8. Asthma. She does not have any exacerbation. DISCHARGE CONDITION: Stable. Blood pressure is 152/77, heart rate is 66, respiratory rate is 16, O2 sat on 1 L 97%, temperature 36.5 Celsius. MEDICATIONS AT DISCHARGE: Please see the EMR. DISCHARGE INSTRUCTIONS: 1. She should remain in a sling at all times and limit her range of motion. Weightbearing as tolera florian to the left arm. Further follow up with Dr. Lewis in the next 4 weeks. 2. Continue Lovenox until she is more mobile. Greater than 30 minutes discharging and coordinating her care. Copy requested to: Joshua /[id number]/MODL
--- NOTE | 2019-02-10 11:19 | ASDISCHSUM ---
Discharge Information Plan Status:SNF Medically Cleared to Leave: Discharge Date: D/C Disposition: ADT D/C Disposition:[facility] Facility Projected Discharge Date:02/10/2019 11:00 AM Transportation at D/C: Discharge Delay Reason: Follow-Up Date:02/10/2019 11:00 AM Discharge Slot: Final Diagnosis: Placement Information Referral Type:*Assisted/SNF Referral ID:[id number] Provider Name:[facility] Address 1:[address] Address 2: City:[place] Selection Factors: State:[place] Patient Contact Information Contact Name:ANÍBAL Relationship:Son Address:[address] City:[place] Alternate Phone: State/Zip Code:[place] [address] Email: Financial Information Financial Class:Medicare Primary Plan Desc:MEDICARE INPATIENT Primary Plan Number:[id number] Secondary Plan Desc: Secondary Plan Number: Assessment Information LACE LACE Length of stay for Answers: 3 days current admission Acuity / Level of Answers: Yes Care: Did the patient have an inpatient admission? Comorbidities - select Answers: Coronary Artery Disease all that apply Other Notes: HTN # of Emergency department Answers: 1-2 visits in the last 6 months Score: 10 Date Signed: 02/10/2019 10:13 AM Electronically Signed By:Flower Rivera.RN [facility] CM Progress Note CM Note CM Note Notes: Pt had fall at home and dislocated shoulder. Pt resdes alone independently, has a lokeshr Raghavendra ([phone]) and Nikhil Gibbs ([phone]) local. OT rec SNF, PT eval is pending and may not be until tomorrow. Pt agrees to SNF and requests referral to [facility]. Referal sent in [employer] and pt non-triggering PASRR completed. Pt nikhil Gibbs updated. D/c plan of care: [facility] Saturday Date Signed: 02/07/2019 12:13 PM Electronically Signed By:SHANICE Ball Case Management Discharge Plan Note Case Management Discharge Discharge Order Complete? Answers: Yes Patient to Obtain Answers: Other Notes: via [facility] Medications Transportation Arranged Answers: Other Notes: [facility] wheelchair a n Faxed Final Orders Answers: Yes Agency/Facility Transfer Answers: Yes Report Printed & Faxed to Receiving Agency Family Notified Answers: Yes Notes: nikhil Gibbs via phone Discharge Comments Notes: Pt is being D/Cd to [facility] today. Orders sent to [facility]; they will arrange transport. CM notified nikhil Gibbs by phone [phone]. Date Signed: 02/10/2019 10:15 AM Electronically Signed By:Flower DominguezRN Intervention Information Intervention Type:*IM-Signed Date of Service:02/10/2019 09:21 AM Patient Type:Inpatient Staff Member:Kalie Matthew Hours: Discipline: Severity: Comment:
== END 2019-02-10 12:01 | DRG 563 ==
LOC: EDUNIT# → F3N 19:41 → OBSVTOIN 02-07 11:45
PROVIDERS: ADMIT Internal Medicine; ATTEND Internal Medicine
PROC: 0RSKXZZ Reposition Left Shoulder Joint, External Approach (ICD-10-PCS; principal; 2019-02-07)
DX: S43.015A Anterior dislocation of left humerus, initial encounter (principal); W22.8XXA Striking against or struck by other objects, initial encounter; Y92.000 Kitchen of unspecified non-institutional (private) residence as the place of occurrence of the external cause; R11.0 Nausea; I11.0 Hypertensive heart disease with heart failure; I50.30 Unspecified diastolic (congestive) heart failure; I25.10 Atherosclerotic heart disease of native coronary artery without angina pectoris; J45.909 Unspecified asthma, uncomplicated; I34.0 Nonrheumatic mitral (valve) insufficiency; E78.00 Pure hypercholesterolemia, unspecified; I25.2 Old myocardial infarction; Z99.81 Dependence on supplemental oxygen; Z79.82 Long term (current) use of aspirin
CPT/HCPCS: 96374; 97110-GP; 97116-GP; 97161-GP; 97165-GO; 97530-GP; 97535-GO; G0378; J1650; J2405; J3010